=== PATIENT | female | born 1975 | race Caucasian/White ===

== ENCOUNTER → 2017-01-04 | Outpatient (CLI) | payer BC ==
[2014-07-22 12:26] VITALS: BP 118/66
--- NOTE | 2017-01-04 08:15 | RAD ---
HISTORY: Cervical neck pain with radiculopathy and degenerative disk disease Study: Five views of the cervical spine Comparison: None Findings: The cervical vertebral body heights are relatively maintained. No evidence of acute displaced fractu re or significant subluxation is identified. Mild degenerative facet changes are seen throughout the cervical spine. Intervertebral disc space narrowing is noted at C7/T1. The odontoid is partially ob scured. There is questionable mild neuroforaminal narrowing bilaterally involving the lower cervical spine. If symptoms persist correlation with MRI may be helpful. IMPRESSION: 1. Degenerative changes as noted above. Reported By:
--- NOTE | 2017-01-04 08:17 | RAD ---
HISTORY: Back pain Study: Three views of the thoracic spine Comparison: None Findings: Images demonstrate dextro levo curvature of the thoracolumbar spine. Otherwise the thoracic vertebra l body heights are relatively maintained. No evidence of acute displaced fracture or significant sub luxation is identified. Degenerative facet changes are seen throughout the thoracic spine. Mild mult ilevel intervertebral disc space narrowing and minimal multilevel osteophytosis are also noted. Surg ical clips project over the right upper quadrant the abdomen. IMPRESSION: 1. Degenerative changes as noted above. Reported By:
--- NOTE | 2017-01-04 08:21 | RAD ---
HISTORY: Back pain Study: Five views of the lumbar spine Comparison: None Findings: Levo curvature of the lumbar spine is noted. The lumbar vertebral body heights are relatively mainta ined. No evidence of acute displaced fracture or significant subluxation identified. Degenerative fa cet changes are seen throughout the lumbar spine. Intervertebral disc space narrowing is seen at L4/ L5 and L5/S1. Surgical clips project over the right upper quadrant of the abdomen and right hemipelv is. Cosmetic artifact projects over L4/L5 anteriorly. A large amount of stool is seen within portion s of the colon. If symptoms persist correlation with MRI may be helpful. IMPRESSION: 1. Degenerative changes as noted above. Reported By:
== END ==
LOC: RAD 07:30
PROVIDERS: ATTEND Nurse Practitioner Family
DX: M50.83 Other cervical disc disorders, cervicothoracic region (principal)
CPT/HCPCS: 72050; 72072; 72110

== ENCOUNTER → 2017-01-05 | Outpatient (CLI) | payer BC ==
[2014-07-22 12:26] VITALS: BP 118/66
--- NOTE | 2017-01-06 06:42 | MRI ---
HISTORY: Neck pain, radiculopathy Study: MRI cervical spine without con Comparison: Plain films January 04, 2017 Technique: Multiplanar multisequence MRI of the cervical spine was obtained utilizing standard depar tmental protocol. Findings: Alignment of the cervical spine is maintained. No abnormal signal characteristics of the bone marro w can be identified. No evidence for fracture or significant bone or edema can be seen. The surrou nding soft tissues are unremarkable. The cervical spinal cord is normal in size and configuration a nd without foci of abnormal signal. C2 -- C3: No evidence for compressive disc disease. The neural foramina are patent. C3 -- C4: No evidence for compressive disc disease. The neural foramina are patent. C4 -- C5: No evidence for compressive disc disease. The neural foramina are patent. C5 -- C6: No evidence for compressive disc disease. The neural foramina are patent. C6 -- C7: No evidence for compressive disc disease. The neural foramina are patent. C7 -- T1: No evidence for compressive disc disease. The neural foramina are patent. IMPRESSION: No evidence for compressive disc disease or compresses spondylitic change at any level Reported By:
--- NOTE | 2017-01-06 06:45 | MRI ---
HISTORY: Thoracic back pain Study: MRI thoracic spine without contrast Comparison: None Technique: Multi planar multi sequence non contrast imaging Findings: The prevertebral soft tissues are normal. Mild dextroscoliosis is present. The alignment is otherwis e normal. The vertebral body bone signal is normal. The intervertebral discs are well hydrated and n ormal. There is no evidence for compressive disc disease at any level. There is no evidence for comp ressive spondylitic change at any level. The thoracic spinal cord is normal in size and configuratio n and without foci of abnormal signal. No syrinx is present. No intra or extradural masses or cysts are identified. IMPRESSION: No significant abnormality identified Reported By:
== END ==
LOC: RAD 15:00
PROVIDERS: ATTEND Nurse Practitioner Family
DX: M50.83 Other cervical disc disorders, cervicothoracic region (principal)
CPT/HCPCS: 72141; 72146